=== PATIENT | female | born 1965 | race Caucasian/White ===

== ENCOUNTER → 2023-09-10 | Day surgery (SDC) | payer OTHER ==
[~2023-09-10] MED LIST: ACTOS15 MG PO; FARXIGA10 MG PO; FENTANYL CITRATE/PF 100MCG/2 ML INJ ONE; GABAPENTIN300 MG PO; HUMULIN R500 UNIT/1 SQ; INSULIN REGULAR, HUMAN 100 UNIT/1 ML ONE; LACTATED RINGER'S 1,000 ML ONE; LEVOTHYROXINE88 MCG PO; LIPITOR10 MG PO; LISINOPRIL-HCT1 EACH PO; METFORMIN HCL500 MG PO; MIDAZOLAM HCL 2 MG/2 ML VIAL ONE; OR PHACO EYE KIT ONE; OZEMPIC0.25 MG/02 INJ; PREOP PHACO EYE KIT ONE; PROPARACAINE HCL 0.5% OP SOLN 15 ML BTL ONE
[2023-09-10 12:52] VITALS: TEMP 97.6
[2023-09-10 13:10] VITALS: BP 112/48; PULSE 85; RESP 16; O2SAT 98
== END | disposition home or self-care (01) ==
LOC: OR 09:50
PROVIDERS: ATTEND Ophthalmology
DX: H25.11 Age-related nuclear cataract, right eye (principal); I10 Essential (primary) hypertension; E78.5 Hyperlipidemia, unspecified; E11.9 Type 2 diabetes mellitus without complications; Z79.4 Long term (current) use of insulin; Z79.84 Long term (current) use of oral hypoglycemic drugs; Z79.85 Long-term (current) use of injectable non-insulin antidiabetic drugs; E03.9 Hypothyroidism, unspecified; Z79.899 Other long term (current) drug therapy
CPT/HCPCS: 36415; 66984; 82948; 84132; J2250; J3010; J7121; V2632

== ENCOUNTER 2024-05-14 17:18 | Inpatient (IN) | payer OTHER ==
[~2024-05-14] VITALS: Ht 170.2 cm; Wt 97.1 kg
[~2024-05-14 17:18] MED LIST changes: -FENTANYL CITRATE/PF 100MCG/2 ML INJ ONE; -INSULIN REGULAR, HUMAN 100 UNIT/1 ML ONE; -LACTATED RINGER'S 1,000 ML ONE; -MIDAZOLAM HCL 2 MG/2 ML VIAL ONE; -OR PHACO EYE KIT ONE; -PREOP PHACO EYE KIT ONE; -PROPARACAINE HCL 0.5% OP SOLN 15 ML BTL ONE
[2024-05-14 17:36] VITALS: TEMP 98.7
[2024-05-14] MEDS ORDERED: SODIUM CHLORIDE FLUSH 10 ML SYR IV PRN (18:00)
[2024-05-14 18:04] LABS: BASOPHILS % 0.2 % (0.0-1.0); EOSINOPHILS % 0.5 % (0.0-6.0); HEMATOCRIT 26.2 % (34.2-44.1); HEMOGLOBIN 8.2 g/dL (12.0-16.0); LYMPHOCYTES # (AUTO) 0.7 (1.0-3.2); LYMPHOCYTES % 8.5 % (18.0-39.1); MEAN CORPUSCULAR HEMOGLOBIN 26.5 pg (28-32); MEAN CORPUSCULAR HGB CONC 31.3 g/dL (31-35); MEAN CORPUSCULAR VOLUME 84.8 fL (81-99); MONOCYTES # (AUTO) 1.8 (0.2-0.8); MONOCYTES % 21.7 % (4.4-11.3); NEUTROPHILS # (AUTO) 5.6 (2.1-6.9); NEUTROPHILS % 68.4 % (38.7-80.0); PLATELET COUNT 378 x10e3/uL (140-360); RED BLOOD COUNT 3.09 x10e6/uL (3.6-5.1); RED CELL DISTRIBUTION WIDTH 16.2 % (11.7-14.4)
[2024-05-14 18:11] LABS: INR 0.96; PROTHROMBIN TIME 13.5 seconds (11.9-14.5)
[2024-05-14 18:12] LABS: PARTIAL THROMBOPLASTIN TIME 27.9 seconds (23.8-35.5)
[2024-05-14 18:20] LABS: ALBUMIN/GLOBULIN RATIO 0.4 (0.8-2.0); ANION GAP 18.9 mmol/L (8-16); BILIRUBIN,TOTAL 0.5 mg/dL (0.2-1.2); CALCIUM 8.5 mg/dL (8.4-10.2); CREATININE, SERUM 2.04 mg/dL (0.57-1.11); POTASSIUM 4.9 mmol/L (3.5-5.1)
[2024-05-14 18:26] LABS: TROPONIN I 0.017 ng/mL (0-0.300)
[2024-05-14] MEDS ORDERED: DEXTROSE 50% SYRINGE 50 ML IV PRN (19:00)
[2024-05-14] MEDS ORDERED: ONDANSETRON HCL INJ 2MG/ML 2ML 2 MG/ML VIAL IV PRN (19:00)
[2024-05-14] MEDS ORDERED: SODIUM CHLORIDE FLUSH 10 ML SYR INJ PRN (19:00)
[2024-05-14 19:33] LABS: FERRITIN 843.64 ng/mL (4.63-204.00)
[2024-05-14 20:25] VITALS: PULSE 92; RESP 24; O2SAT 100
[2024-05-14] MEDS: ACETAMINOPHEN 325 MG TAB PO STA (20:48)
[2024-05-14] MEDS: INSULIN REGULAR, HUMAN 100 UNIT/1 ML SQ SCH (22:06)
[2024-05-14 22:08] VITALS: PULSE 99; RESP 21
[2024-05-14 22:36] VITALS: BP 128/49; PULSE 66; RESP 20; TEMP 98.1; O2SAT 97
[2024-05-15] VITALS (8 sets, daily range): BP systolic 92–118; BP diastolic 47–60; PULSE 87–103; RESP 16–20; TEMP 98.1–98.8; O2SAT 96–100
[2024-05-15 08:14] LABS: BASOPHILS % 0.4 % (0.0-1.0); EOSINOPHILS # (AUTO) 0.1 (0.0-0.4); EOSINOPHILS % 1.6 % (0.0-6.0); HEMATOCRIT 29.6 % (34.2-44.1); HEMOGLOBIN 8.4 g/dL (12.0-16.0); LYMPHOCYTES # (AUTO) 0.4 (1.0-3.2); LYMPHOCYTES % 8.2 % (18.0-39.1); MEAN CORPUSCULAR HEMOGLOBIN 26.7 pg (28-32); MEAN CORPUSCULAR HGB CONC 28.4 g/dL (31-35); MONOCYTES # (AUTO) 1.3 (0.2-0.8); MONOCYTES % 25.4 % (4.4-11.3); NEUTROPHILS # (AUTO) 3.3 (2.1-6.9); NEUTROPHILS % 63.8 % (38.7-80.0); PLATELET COUNT 253 x10e3/uL (140-360); RED BLOOD COUNT 3.15 x10e6/uL (3.6-5.1); RED CELL DISTRIBUTION WIDTH 16.2 % (11.7-14.4); WHITE BLOOD COUNT 5.12 x10e3/uL (4.8-10.8)
[2024-05-15 08:24] LABS: ALBUMIN 1.7 g/dL (3.5-5.0); ANION GAP 15.7 mmol/L (8-16); BILIRUBIN,TOTAL 0.9 mg/dL (0.2-1.2); CALCIUM 8.2 mg/dL (8.4-10.2); CREATININE, SERUM 1.77 mg/dL (0.57-1.11); POTASSIUM 4.7 mmol/L (3.5-5.1)
[2024-05-15 08:25] LABS: ALBUMIN/GLOBULIN RATIO 0.4 (0.8-2.0)
[2024-05-15] MEDS: SODIUM CHLORIDE 0.9% 250ML 250 ML IV ONE (09:21)
[2024-05-15] MEDS: SODIUM CHLORIDE 0.9% 250ML 250 ML ONE (09:21)
[2024-05-15] MEDS: CITRATE OF MAGNESIA 300ML BOTTLE PO ONE ×2 (09:23→11:16)
[2024-05-15] MEDS: BISACODYL 5 MG TAB EC PO ONE ×3 (09:24→11:16)
[2024-05-15] MEDS ORDERED: DEXTROSE 50% SYRINGE 50 ML IV PRN (10:00)
[2024-05-15] MEDS ORDERED: ACETAMINOPHEN 325 MG TAB PO PRN (10:00)
[2024-05-15 10:08] LABS: BASOPHILS % (MANUAL) 1 % (0-1.5); LYMPHOCYTES % (MANUAL) 9 % (19-48); MONOCYTES % (MANUAL) 20 % (3.4-9.0); NEUTROPHILS % (MANUAL) 70 % (40-74)
[2024-05-15 10:09] LABS: PLATELET ESTIMATE ADEQUATE; PLATELET MORPHOLOGY COMMENT NORMAL; RBC MORPHOLOGY COMMENT NORMAL
[2024-05-15] MEDS: INSULIN LISPRO 100 UNIT/1 ML 3ML VIAL SQ SCH ×2 (11:30)
[2024-05-15] MEDS: SODIUM CHLORIDE 0.9% 1000ML 1,000 ML IV SCH (13:50)
[2024-05-15] MEDS: IRON SUCROSE 100 MG in SODIUM CHLORIDE 0.9% 100 ML IV SCH (13:51)
[2024-05-15] MEDS: GABAPENTIN 300 MG CAP PO SCH (14:27)
[2024-05-15] MEDS: INSULIN GLARGINE 100 UNITS/ML VIAL SQ SCH (21:00)
[2024-05-15] MEDS: ATORVASTATIN 40 MG TAB PO SCH (21:16)
[2024-05-16] VITALS (8 sets, daily range): BP systolic 99–129; BP diastolic 46–66; PULSE 81–104; RESP 17–18; TEMP 98–99; O2SAT 94–100
[2024-05-16] MEDS: LEVOTHYROXINE SODIUM 88 MCG TAB PO SCH (05:52)
[2024-05-16 05:56] LABS: BASOPHILS % 0.3 % (0.0-1.0); EOSINOPHILS # (AUTO) 0.1 (0.0-0.4); EOSINOPHILS % 0.7 % (0.0-6.0); HEMATOCRIT 26.1 % (34.2-44.1); HEMOGLOBIN 8.4 g/dL (12.0-16.0); LYMPHOCYTES # (AUTO) 0.4 (1.0-3.2); LYMPHOCYTES % 6.2 % (18.0-39.1); MEAN CORPUSCULAR HEMOGLOBIN 26.8 pg (28-32); MEAN CORPUSCULAR HGB CONC 32.2 g/dL (31-35); MEAN CORPUSCULAR VOLUME 83.1 fL (81-99); MONOCYTES # (AUTO) 1.7 (0.2-0.8); MONOCYTES % 24.4 % (4.4-11.3); NEUTROPHILS # (AUTO) 4.6 (2.1-6.9); NEUTROPHILS % 67.8 % (38.7-80.0); PLATELET COUNT 354 x10e3/uL (140-360); RED BLOOD COUNT 3.14 x10e6/uL (3.6-5.1); RED CELL DISTRIBUTION WIDTH 16.4 % (11.7-14.4); WHITE BLOOD COUNT 6.75 x10e3/uL (4.8-10.8)
[2024-05-16 06:07] LABS: ANION GAP 15.7 mmol/L (8-16); CALCIUM 8.2 mg/dL (8.4-10.2); CREATININE, SERUM 1.39 mg/dL (0.57-1.11); POTASSIUM 4.7 mmol/L (3.5-5.1)
[2024-05-16] MEDS ORDERED: FUROSEMIDE INJ 10 MG/ML 2 ML VIAL IV PRN (10:30)
[2024-05-16] MEDS: SODIUM CHLORIDE 0.9% 250ML 250 ML IV ONE (11:55)
[2024-05-16] MEDS: ACETAMINOPHEN 325 MG TAB PO STA (11:55)
[2024-05-16 12:17] LABS: BASOPHILS % (MANUAL) 1 % (0-1.5); LYMPHOCYTES % (MANUAL) 9 % (19-48); MONOCYTES % (MANUAL) 10 % (3.4-9.0); NEUTROPHILS % (MANUAL) 80 % (40-74); PLATELET ESTIMATE ADEQUATE; PLATELET MORPHOLOGY COMMENT NORMAL; RBC MORPHOLOGY COMMENT NORMAL
[2024-05-16] MEDS ORDERED: BISACODYL 5 MG TAB EC PO ONE (17:00)
[2024-05-16] MEDS: SODIUM CHLORIDE 0.9% 250ML 250 ML ONE (17:15)
[2024-05-16] MEDS: BISACODYL 5 MG TAB EC PO ONE ×2 (20:31→22:31)
[2024-05-16 21:59] LABS: CREATININE,URINE RANDOM 37.98 mg/dL (47-110)
[2024-05-16 22:07] LABS: TOTAL PROTEIN, URINE < 6.8 mg/dL (1-14)
[2024-05-17] VITALS (7 sets, daily range): BP systolic 115–139; BP diastolic 50–67; PULSE 91–107; RESP 17–18; TEMP 98.4–99.7; O2SAT 95–100
[2024-05-17 07:05] LABS: BASOPHILS % 0.3 % (0.0-1.0); EOSINOPHILS # (AUTO) 0.1 (0.0-0.4); EOSINOPHILS % 0.8 % (0.0-6.0); HEMATOCRIT 33.1 % (34.2-44.1); HEMOGLOBIN 10.5 g/dL (12.0-16.0); LYMPHOCYTES # (AUTO) 0.4 (1.0-3.2); LYMPHOCYTES % 5.1 % (18.0-39.1); MEAN CORPUSCULAR HEMOGLOBIN 26.3 pg (28-32); MEAN CORPUSCULAR HGB CONC 31.7 g/dL (31-35); MONOCYTES # (AUTO) 1.5 (0.2-0.8); MONOCYTES % 20.6 % (4.4-11.3); NEUTROPHILS # (AUTO) 5.4 (2.1-6.9); NEUTROPHILS % 72.7 % (38.7-80.0); PLATELET COUNT 338 x10e3/uL (140-360); RED BLOOD COUNT 3.99 x10e6/uL (3.6-5.1); WHITE BLOOD COUNT 7.39 x10e3/uL (4.8-10.8)
[2024-05-17 07:22] LABS: ANION GAP 14.6 mmol/L (8-16); CALCIUM 8.4 mg/dL (8.4-10.2); CREATININE, SERUM 1.24 mg/dL (0.57-1.11); POTASSIUM 4.6 mmol/L (3.5-5.1)
[2024-05-17 08:10] LABS: FERRITIN 1820.75 ng/mL (4.63-204.00)
[2024-05-17] MEDS: BISACODYL 5 MG TAB EC PO ONE ×3 (08:58→15:13)
[2024-05-17] MEDS: CITRATE OF MAGNESIA 300ML BOTTLE PO ONE ×2 (17:56→23:01)
[2024-05-18] VITALS (7 sets, daily range): BP systolic 105–123; BP diastolic 50–61; PULSE 85–105; RESP 17–18; TEMP 98.2–99.2; O2SAT 96–100
[2024-05-18] MEDS: CITRATE OF MAGNESIA 300ML BOTTLE PO ONE (05:40)
[2024-05-18] MEDS ORDERED: LIDOCAINE HCL 1% LOCAL INJ 20 ML VIAL ONE (09:24)
[2024-05-18] MEDS ORDERED: FENTANYL CITRATE/PF 100MCG/2 ML INJ ONE (09:25)
[2024-05-18] MEDS ORDERED: MIDAZOLAM HCL 2 MG/2 ML VIAL ONE (09:25)
[2024-05-18] MEDS ORDERED: SODIUM CHLORIDE 0.9% 250ML 250 ML ONE (09:25)
[2024-05-18] MEDS ORDERED: ONDANSETRON HCL 4 MG ORAL DISINTEGRATING TAB PO PRN (10:45)
[2024-05-18] MEDS ORDERED: LIDOCAINE HCL 2% LOCAL INJ 5 ML SDV VIAL INJ ONE (11:57)
[2024-05-18] MEDS ORDERED: PROPOFOL IV EMULSION 10 MG/ML 20 ML VIAL ONE (11:57)
[2024-05-18] MEDS ORDERED: PROPOFOL IV EMULSION 10 MG/ML 50 ML VIAL IV ONE (11:57)
[2024-05-19] VITALS: BP 119/65; PULSE 95; RESP 20; TEMP 98.3; O2SAT 98
[2024-05-19 04:00] VITALS: BP 109/51; PULSE 89; RESP 17; TEMP 99.5; O2SAT 97
[2024-05-19 05:20] LABS: ALPHA FETO-PROTEIN 1.8 ng/mL (0.0-9.2)
[2024-05-19 05:46] LABS: BASOPHILS % 0.2 % (0.0-1.0); EOSINOPHILS # (AUTO) 0.1 (0.0-0.4); EOSINOPHILS % 1.1 % (0.0-6.0); HEMATOCRIT 31.1 % (34.2-44.1); LYMPHOCYTES # (AUTO) 0.4 (1.0-3.2); LYMPHOCYTES % 5.6 % (18.0-39.1); MEAN CORPUSCULAR HEMOGLOBIN 26.5 pg (28-32); MEAN CORPUSCULAR HGB CONC 32.2 g/dL (31-35); MEAN CORPUSCULAR VOLUME 82.3 fL (81-99); MONOCYTES # (AUTO) 1.3 (0.2-0.8); MONOCYTES % 20.2 % (4.4-11.3); NEUTROPHILS # (AUTO) 4.8 (2.1-6.9); NEUTROPHILS % 72.1 % (38.7-80.0); PLATELET COUNT 304 x10e3/uL (140-360); RED BLOOD COUNT 3.78 x10e6/uL (3.6-5.1); RED CELL DISTRIBUTION WIDTH 17.4 % (11.7-14.4)
[2024-05-19 06:20] LABS: CALCIUM 8.4 mg/dL (8.4-10.2); CREATININE, SERUM 1.03 mg/dL (0.57-1.11)
[2024-05-19 08:00] VITALS: BP 112/51; PULSE 88; RESP 18; TEMP 98.4; O2SAT 94
[2024-05-19 08:08] LABS: EOSINOPHILS % (MANUAL) 2 % (0-7); LYMPHOCYTES % (MANUAL) 2 % (19-48); MONOCYTES % (MANUAL) 10 % (3.4-9.0); NEUTROPHILS % (MANUAL) 85 % (40-74); PLATELET ESTIMATE ADEQUATE; PLATELET MORPHOLOGY COMMENT NORMAL; REACTIVE LYMPHOCYTES 1
[2024-05-19 08:09] LABS: RBC MORPHOLOGY COMMENT NORMAL
[2024-05-19] MEDS ORDERED: PROPOFOL IV EMULSION 10 MG/ML 20 ML VIAL ONE ×2 (10:36→18:01)
[2024-05-19 12:41] VITALS: BP 116/59; PULSE 83; RESP 18; TEMP 98.7; O2SAT 95
[2024-05-19] MEDS ORDERED: OMEPRAZOLE40 MG (13:25)
[2024-05-19] MEDS ORDERED: ONDANSETRON HCL4 MG (13:25)
[2024-05-19] MEDS ORDERED: SUCRALFATE1 GM (13:25)
[2024-05-19] MEDS ORDERED: OZEMPIC1 MG/0.71 (13:26)
[2024-05-19] MEDS ORDERED: OZEMPIC2 MG/0.75 (13:26)
[2024-05-19] MEDS ORDERED: LANTUS SOLOSTAR (14:07)
[2024-05-19] MEDS ORDERED: LANTUS SOLOSTAR SQ (14:10)
[2024-05-19] MEDS ORDERED: HUMALOG KW200 UNIT/1 SQ (14:14)
[2024-05-19] MEDS ORDERED: PEN NEEDLES (14:15)
[2024-05-19] MEDS ORDERED: METOCLOPRAMIDE HCL 10 MG/2ML VIAL ONE (18:01)
[2024-05-19] MEDS ORDERED: LIDOCAINE HCL 2% LOCAL INJ 5 ML SDV VIAL INJ ONE (18:01)
== END 2024-05-19 14:50 | disposition home or self-care (01) | DRG 803 ==
LOC: ER 17:36 → ERHOLD 18:56 → MED/SURG2 22:50 → OBSVTOIN 05-15 10:00
PROVIDERS: ADMIT Internal Medicine; ATTEND Internal Medicine
PROC: 30233N1 Transfusion of Nonautologous Red Blood Cells into Peripheral Vein, Percutaneous Approach (ICD-10-PCS; principal; 2024-05-15)
PROC: 0DBK8ZX Excision of Ascending Colon, Via Natural or Artificial Opening Endoscopic, Diagnostic (ICD-10-PCS; 2024-05-18)
PROC: 07BC3ZX Excision of Pelvis Lymphatic, Percutaneous Approach, Diagnostic (ICD-10-PCS; 2024-05-18 14:08)
PROC: 0DB98ZX Excision of Duodenum, Via Natural or Artificial Opening Endoscopic, Diagnostic (ICD-10-PCS; 2024-05-19)
PROC: 0DB68ZX Excision of Stomach, Via Natural or Artificial Opening Endoscopic, Diagnostic (ICD-10-PCS; 2024-05-19)
DX: D50.8 Other iron deficiency anemias (principal); E87.1 Hypo-osmolality and hyponatremia; N17.9 Acute kidney failure, unspecified; E87.20 Acidosis, unspecified; E11.42 Type 2 diabetes mellitus with diabetic polyneuropathy; E11.22 Type 2 diabetes mellitus with diabetic chronic kidney disease; I12.9 Hypertensive chronic kidney disease with stage 1 through stage 4 chronic kidney disease, or unspecified chronic kidney disease; N18.30 Chronic kidney disease, stage 3 unspecified; E78.5 Hyperlipidemia, unspecified; Z11.52 Encounter for screening for COVID-19; K44.9 Diaphragmatic hernia without obstruction or gangrene; K20.90 Esophagitis, unspecified without bleeding; K29.70 Gastritis, unspecified, without bleeding; E86.9 Volume depletion, unspecified; Z79.899 Other long term (current) drug therapy; Z79.84 Long term (current) use of oral hypoglycemic drugs; Z79.890 Hormone replacement therapy; Z79.4 Long term (current) use of insulin; Z87.891 Personal history of nicotine dependence; Z88.0 Allergy status to penicillin; Z88.2 Allergy status to sulfonamides; R59.0 Localized enlarged lymph nodes; K63.5 Polyp of colon
CPT/HCPCS: 36415; 38505; 43239; 45378; 45385; 71046; 71250; 74176; 74470; 76770; 77012; 80048; 80053; 82105; 82378; 82550; 82570; 82607; 82728; 82746; 82948; 83010; 83036; 83540; 83615; 83735; 84156; 84466; 84484; 85025; 85045; 85610; 85730; 86301; 86304; 86850; 86900; 86920; 88305; 88313; 88342; 93005; 94799; 99152; 99283; G0378; J1756; J1940; J2001; J2250; J2765; J7030; J7050; P9016; U0002